=== PATIENT | male | born 1990 | race Caucasian/White ===

== ENCOUNTER → 2021-09-02 14:13 | Outpatient (BNVA) | payer SELFPAY | PROVIDERS: PCP Nurse Practitioner Family; Visit Provider Family Medicine | DX: R05.9 Cough, unspecified (principal); R50.9 Fever, unspecified | CPT/HCPCS: 87400; 87635 ==

== ENCOUNTER 2021-09-04 23:18 | Emergency (ER) | payer SELFPAY ==
[2021-09-04 23:21] VITALS: BP 174/82; RESP 18; O2SAT 98; BMI 22.3
--- NOTE | 2021-09-04 23:29 | XRR_ITS ---
PROCEDURE INFORMATION: Exam: XR Chest Exam date and time: 09/04/2021 11:29 PM Age: 30 years old Clinical indication: Shortness of breath; Additional info: SOB TECHNIQUE: Imaging protocol: XR of the chest. Views: 1 view. COMPARISON: No relevant prior studies available. FINDINGS: Lungs: No consolidation. Pleural spaces: No pleural effusion. No pneumothorax. Heart/Mediastinum: No cardiomegaly. Bones/joints: Unremarkable. XR/XR chest 1V portable [id number] IMPRESSION: No acute abnormality demonstrated.
--- NOTE | 2021-09-04 23:33 | ED_ITS ---
HPI - COVID General: Chief Complaint: Shortness of Breath/Dyspnea Stated Complaint: sob Time Seen by Provider: 09/04/21 23:29 Triage information: Has fever, cough or shortness of breath . No known COVID + exposure last 14 days History of Present Illness: HPI Narrative: Patient arrives via ambulance with complaint of worsening shortness of breath. Patient says his symptoms started on Wednesday he has had fever chills headache nasal congestion cough loss of taste. He said tonight his shortness of breath become worse. Patient states it hurts to take a deep breath and that is the pain that he is having in the center of her chest when he takes a deep breath. Received a nebulizer treatment in the ambulance he said that did not seem like it helped much. Patient is unvaccinated. Patient states he is not interested in receiving monoclonal antibody if he test positive for Covid. complaint: has COVID symptoms Prior covid testing: yes, results pending at other location Prior testing date: 09/02/21 COVID 19 common symptoms: positive fever(s), chills, non-productive cough, dyspnea, body aches, headache(s), loss of sense of smell and/or taste, throat pain, nasal congestion and chest tightness; negative nausea or vomiting COVID 19 other sytmptoms: negative chest pain Onset (ago): day(s) Severity: moderate COVID Results: SARS-CoV-2 Antigen (Rapid) Positive (Negative) H 09/04/21 23:35 09/04/21 SARS-CoV-2 RNA (RT-PCR) Pending 09/02/21 14:00 09/02/21 Review of Systems Const: Reports: fever(s), chills and body aches Eyes: Denies: change in vision or blurry vision ENMT: Reports: throat pain and nasal congestion Card: Denies: chest pain or dyspnea on exertion Resp: Reports: dyspnea, non-productive cough and pain on inspiration GI: Denies: abdominal pain, nausea or vomiting : Denies: difficulty urinating Musc: Denies: extremity pain Skin/Breast: Denies: rash Neuro: Reports: headache(s) Psych: Denies: anxiety or depression Everardo/Lymph: Denies: easy bruising PFSH ED PFSH: Social History Alcohol intake: unknown Current occupational status: employed Current gender identity: Male Physical Exam Const: COMMON NORMALS: no acute distress, average body habitus and patient oriented x3 HENMT: COMMON NORMALS: normocephalic HEAD & SCALP: normal to inspection and normocephalic FACE & SINUS: normal facial exam Eye: COMMON NORMALS: conjunctivae normal GENERAL EYE: appearance normal, both eyes and all related structures CONJUNCTIVA: Yes conjunctivae normal Neck/C-Spine: COMMON NORMALS: no JVD Chest: COMMONS NORMALS: normal inspection of the chest Resp: COMMON NORMALS: normal respiratory effort EFFORT & INSPECTION: Yes able to speak in complete sentences Cardio: COMMON NORMALS: no JVD, regular rate and regular rhythm RATE: regular rate RHYTHM: regular rhythm GI: COMMON NORMALS: Normal to inspection, nondistended, normoactive bowel sounds present Extremity: COMMON NORMALS: normal to inspection and full ROM Neuro: COMMON NORMALS: patient oriented x3 Course Vital Signs: Vital signs: Vital Signs Respiratory Rate 18 09/04/21 23:21 Blood Pressure 174/82 09/04/21 23:21 Pulse Oximetry 98 09/04/21 23:21 MDM - COVID MDM Narrative: Medical decision making narrative: Patient arrives via ambulance complaint of burning with inspiration takes deep breath. he has had COVID symptoms since Wednesday. Patient was tested on the with results not being back. Chest x-ray is done which is negative for any concerning findings. Covid test come back positive. Patient requesting note for work. Patient no acute distress, has no complaints shortness of breath. Patient afebrile. Patient currently on azithromycin , methylprednisone. Patient encouraged at home , test negative before return back to work. Lab Data: Labs: Lab Results 09/04/21 23:35 SARS-CoV-2 Ag (Rap id) Positive H (Negative) COVID Results: SARS-CoV-2 Antigen (Rapid) Positive (Negative) H 09/04/21 23:35 09/04/21 SARS-CoV-2 RNA (RT-PCR) Pending 09/02/21 14:00 09/02/21 Discharge Plan Discharge Patient Disposition: Home Clinical Impression: COVID-19 Condition: Stable Prescriptions: No Action methylprednisolone [Medrol (Micah)] 4 mg tablets,dose pack See Rx Instructions PO PER PKG DIR Qty: 21 RF: 0 azithromycin [Zithromax Z-Micah] 250 mg tablet See Rx Instructions PO .COMPLEX Qty: 6 RF: 0 Discharge Orders: Discharge ED (Routine); Ordered 09/05/21 Ordered By: Edmundo Monk Referrals: Edmundo Monk, OCCUPATIONAL HEALTH RN [Primary Care Provider] - Discharge Diet: Usual diet Discharge Activity: Increase activity as tolerated Patient Instructions: COVID-19 (Coronavirus Disease 2019) (ED) Activity Restrictions/Additional Instructions: Continue present medications. Can take Tylenol and/or ibuprofen for discomfort. Stay off work to you test negative. Follow-up your primary care return here for worsening symptoms. Stand Alone Forms: Work/School Release Coding Level of Care Code ED Rn Surgical for Elijahg Fwd Exam Comprehensive
[2021-09-05] MEDS: ketorolac 30 mg/mL INJ IVP (00:09)
[2021-09-05 00:12] LABS: SARS Covid-2 Antigen Positive (Negative)
== END 2021-09-05 00:39 | disposition home or self-care (01) ==
PROVIDERS: Emergency Provider Nurse Practitioner Family; PCP Nurse Practitioner Family
DX: U07.1 COVID-19 (principal)
CPT/HCPCS: 71045; 87426; 96374; 99283; J1885

== ENCOUNTER 2022-03-08 18:56 | Emergency (ER) | payer SELFPAY ==
[2022-03-08 19:01] VITALS: BP 142/76; PULSE 78; RESP 16; TEMP 36.8; O2SAT 98
--- NOTE | 2022-03-08 19:05 | XRR_ITS ---
PROCEDURE INFORMATION: Exam: XR Right Ankle Exam date and time: 03/08/2022 7:27 PM Age: 31 years old Clinical indication: Injury or trauma; Fall; Blunt trauma; Ankle; Right; Additional info: Right ankle injury TECHNIQUE: Imaging protocol: Radiologic exam of the Right ankle. Views: 3 or more views. COMPARISON: No relevant prior studies available. FINDINGS: Bones/joints: Osseous structures are intact. Negative for fracture. Joint spaces are preserved. Soft tissues: Normal. XR/XR ankle RT min 3V* [id number] IMPRESSION: No acute findings.
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
== END 2022-03-08 20:38 | disposition home or self-care (01) ==
PROVIDERS: Emergency Provider Nurse Practitioner Family; PCP Nurse Practitioner Family
DX: S93.401A Sprain of unspecified ligament of right ankle, initial encounter (principal); X50.1XXA Overexertion from prolonged static or awkward postures, initial encounter
CPT/HCPCS: 73610; 99283; E0114

== ENCOUNTER 2023-02-08 20:44 | Emergency (ER) | payer SELFPAY ==
[2023-02-08 20:55] VITALS: BP 122/78; PULSE 55; RESP 12; TEMP 36.7; O2SAT 99; BMI 23.0
[2023-02-08] MEDS: sodium chloride 0.9% 1,000 ML 999 ML IV (21:49)
--- NOTE | 2023-02-08 21:49 | W.ED.NAVMDI ---
HPI - Nausea/Vomiting/Diarrhea General: Chief complaint: Nausea/Vomiting/Diarrhea Stated complaint: V\Diahr Time Seen by Provider: 02/08/23 21:35 Source: patient Mode of arrival: ambulatory Limitations: no limitations History of Present Illness: This 32-year-old male presents to the ER for evaluation of abdominal pain that started around 530 this morning. So far, he has vomited about 5 times and had about 10 bowel movements. He also complains of body aches and chills. There are no sick contacts at home or at work. No fever was documented. Currently, patient is clinically stable. Associated nausea: Yes Associated symtoms: Reports nausea; Denies change in vision, chest pain, dysuria or headache(s) Review of Systems Const: Denies: chills, body aches or change in appetite Eyes: Denies: change in vision or eye discharge ENMT: Denies: throat pain, dental pain or nasal discharge Card: Denies: chest pain or lightheadedness GI: Reports: nausea, vomiting and other (Diarrhea) : Denies: dysuria Musc: Denies: neck pain or back pain Neuro: Denies: headache(s) or weakness in extremities Psych: Denies: depression Everardo/Lymph: Denies: easy bruising All/Imm: Denies: urticaria, tongue swelling or facial swelling PFSH ED PFSH: Social History Alcohol intake: unknown Substance/Drug Use: never Current occupational status: employed Current gender identity: Male Physical Exam Const: COMMON NORMALS: no acute distress, patient oriented x3, no limitations and alert HENMT: COMMON NORMALS: normocephalic HEAD & SCALP: normocephalic Eye: COMMON NORMALS: EOMs intact bilaterally Neck/C-Spine: COMMON NORMALS: full ROM and supple Chest: COMMONS NORMALS: normal inspection of the chest Resp: COMMON NORMALS: normal respiratory effort, No retractions, No use of accessory muscles and clear to auscultation bilaterally AUSCULTATION: clear to auscultation bilaterally Cardio: COMMON NORMALS: regular rate, regular rhythm and No murmurs present (Cardio) RATE: regular rate RHYTHM: regular rhythm GI: COMMON NORMALS: Normal to inspection, nondistended, normoactive bowel sounds present and non-tender : COMMON NORMALS: Yes no CVA tenderness BLADDER/KIDNEY EXAM: Yes no CVA tenderness Back/Pelvis: COMMON NORMALS: no CVA tenderness and no thoracic nor lumbar tenderness Extremity: GENERAL: Yes normal exam except as noted Neuro: COMMON NORMALS: patient oriented x3 and no focal motor deficits SENSORIUM/ORIENTATION: Yes alert Psych: COMMON NORMALS: mental status grossly normal and cooperative Course Vital Signs: Vital signs: Vital Signs Temperature 98.0 F 02/08/23 20:55 Pulse Rate 52 L 02/08/23 22:18 Respiratory Rate 14 02/08/23 22:18 Blood Pressure 124/68 02/08/23 22:18 Pulse Oximetry 99 02/08/23 22:18 Oxygen Delivery Me thod Room Air 02/08/23 22:18 MDM - Nausea/Vomiting/Diarrhea Medical Decision Making Medical decision making: Patient presents with vomiting and diarrhea that started earlier today. On exam, she has no abdominal tenderness and abdomen is nonsurgical in nature. After receiving IV fluids and antiemetics, patient felt considerably better. I believe that he has acute gastroenteritis. He will be treated symptomatically. Reasons to return were discussed. Patient verbalized understanding and agrees with the plan. Lab Data 02/08/23 21:42 02/08/23 21:42 Laboratory Results WBC 8.0 10^3/uL (4.0-10.0) 02/08/23 21:42 RBC 4.86 10^6/uL (4.1-5.3) 02/08/23 21:42 Hgb 14.6 g/dL (11.7-16.6) 02/08/23 21:42 Hct 45.1 % (42.0-52.0) 02/08/23 21:42 MCV 92.8 fl (80-94) 02/08/23 21:42 MCH 30.0 pg (28.0-34.0) 02/08/23 21:42 MCHC 32.4 g/dL (30.0-36.0) 02/08/23 21:42 RDW 12.6 % (12.1-15.1) 02/08/23 21:42 Plt Count 263 10^3/cmm (130-400) 02/08/23 21:42 MPV 9.4 fL (7.4-10.4) 02/08/23 21:42 Neut % (Auto) 63.4 % 02/08/23 21:42 Lymph % (Auto) 25.3 % 02/08/23 21:42 [place] % (Auto) 6.5 % 02/08/23 21:42 Eos % (Auto) 3.9 % 02/08/23 21:42 Baso % (Auto) 0.6 % 02/08/23 21:42 Neut # (Auto) 5.05 10^3/uL (1.8-7.7) 02/08/23 21:42 Lymph # (Auto) 2.0 10^3/uL (0.8-4.8) 02/08/23 21:42 [place] # (Auto) 0.5 10^3/uL (0.2-0.9) 02/08/23 21:42 Eos # (Auto) 0.3 10^3/uL (0.0-0.8) 02/08/23 21:42 Baso # (Auto) 0.1 10^3/uL (0.0-0.1) 02/08/23 21:42 Nucleated RBC % (auto) 0 % 02/08/23 21:42 Nucleated RBCs # 0.0 /100WBC 02/08/23 21:42 Sodium 140 mmol/L (136-145) 02/08/23 21:42 Potassium 3.9 mmol/L (3.5-5.1) 02/08/23 21:42 Chloride 101 mmol/L (98-107) 02/08/23 21:42 Carbon Dioxide 28 mmol/L (22-29) 02/08/23 21:42 Anion Gap 14.9 (5-19) 02/08/23 21:42 BUN 12 mg/dL (6-20) 02/08/23 21:42 Creatinine 0.9 mg/dL (0.7-1.2) 02/08/23 21:42 GFR Calculation 99.1 mL/min (90-130) 02/08/23 21:42 Glucose 86 mg/dL (65-115) 02/08/23 21:42 Calculated Osmolality 289 mOsm/kg (285-295) 02/08/23 21:42 Calcium 10.2 mg/dL (8.5-10.5) 02/08/23 21:42 Total Bilirubin 0.5 mg/dL (0.15-1.2) 02/08/23 21:42 AST 17 U/L (0-40) 02/08/23 21:42 ALT 18 U/L (0-41) 02/08/23 21:42 Alkaline Phosphatase 69 U/L (40-130) 02/08/23 21:42 Total Protein 7.2 g/dL (6.6-8.7) 02/08/23 21:42 Albumin 4.6 g/dL (3.5-5.2) 02/08/23 21:42 Globulin 2.6 g/dL (1.3-4.6) 02/08/23 21:42 Lipase 26 U/L (13-60) 02/08/23 21:42 Influenza Type A Ag negative (Negative) 02/08/23 22:13 Influenza Type B Ag negative (Negative) 02/08/23 22:13 SARS-CoV-2 Ag (Rapid) negative (Negative) 02/08/23 22:13 Discharge Plan Discharge Patient Disposition: Home Clinical Impression: Gastroenteritis Condition: Stable Prescriptions: New ondansetron HCl 4 mg tablet 4 mg PO Q6H PRN (Reason: nausea and vomiting) Qty: 20 0RF No Action methylprednisolone [Medrol (Micah)] 4 mg tablets,dose pack See Rx Instructions PO PER PKG DIR Qty: 21 0RF Rx Instructions: PO PER PKG DIR azithromycin [Zithromax Z-Micah] 250 mg tablet See Rx Instructions PO .COMPLEX Qty: 6 0RF Rx Instructions: take 500 mg today (day 1), then 250 mg for 4 days (days 2-5) PO Discharge Orders: Discharge ED (Routine); Ordered 02/08/23 Ordered By: Dayan Weems Discharge Diet: Usual diet Discharge Activity: Resume usual activity Patient Instructions: Opioid Safety, Pain Management Activity Restrictions/Additional Instructions: Take Zofran as needed for nausea/vomiting. Maintain adequate fluid intake. Take [id number] Tylenol as needed for abdominal pain. Return with new or worsening symptoms. Stand Alone Forms: Work/School Release Coding Level of Care Code ED Art Therapy Certified Supervisor for Joel aDnielle
[2023-02-08] MEDS: metoclopramide 5 mg/mL SDV 2 mL 10 MG IVP (21:50)
[2023-02-08 22:18] VITALS: BP 124/68; PULSE 52; RESP 14; O2SAT 99
[2023-02-08 22:22] LABS: Basophils # 0.1 10^3/uL (0.0-0.1); Basophils % 0.6 %; Eosinophils # 0.3 10^3/uL (0.0-0.8); Eosinophils % 3.9 %; Hematocrit 45.1 % (42.0-52.0); Hemoglobin 14.6 g/dL (11.7-16.6); Lymphocytes % 25.3 %; Mean Corpuscular HGB Conc 32.4 g/dL (30.0-36.0); Mean Corpuscular Volume 92.8 fl (80-94); Mean Platelet Volume 9.4 fL (7.4-10.4); Monocytes # 0.5 10^3/uL (0.2-0.9); Monocytes % 6.5 %; Neutrophils # 5.05 10^3/uL (1.8-7.7); Neutrophils % 63.4 %; Nucleated Red Blood Cells % 0 %; Platelet Count 263 10^3/cmm (130-400); Red Blood Count 4.86 10^6/uL (4.1-5.3); Red Cell Distribution Width 12.6 % (12.1-15.1)
[2023-02-08 22:23] LABS: Alanine Aminotransferase 18 U/L (0-41); Albumin Level 4.6 g/dL (3.5-5.2); Alkaline Phosphatase 69 U/L (40-130); Anion Gap 14.9 (5-19); Aspartate Amino Transferase 17 U/L (0-40); Blood Urea Nitrogen 12 mg/dL (6-20); Calcium 10.2 mg/dL (8.5-10.5); Carbon Dioxide 28 mmol/L (22-29); Chloride 101 mmol/L (98-107); Globulin 2.6 g/dL (1.3-4.6); Glomerular Filtration Rate 99.1 mL/min (90-130); Glucose 86 mg/dL (65-115); Lipase 26 U/L (13-60); Osmolality Calculated 289 mOsm/kg (285-295); Potassium 3.9 mmol/L (3.5-5.1); Sodium 140 mmol/L (136-145); Total Bilirubin 0.5 mg/dL (0.15-1.2); Total Protein 7.2 g/dL (6.6-8.7)
[2023-02-08 22:40] LABS: SARS Covid-2 Antigen negative (Negative)
[2023-02-08 22:43] LABS: Influenza A by IFA negative (Negative); Influenza B by IFA negative (Negative)
--- NOTE | 2023-02-12 12:10 | DCPLANNER ---
woods manager called patient due to no primary care physician - patient declines at this time.
== END 2023-02-08 23:10 | disposition home or self-care (01) ==
PROVIDERS: Family Medicine; Emergency Provider Nurse Practitioner Family
DX: K52.9 Noninfective gastroenteritis and colitis, unspecified (principal); Z20.822 Contact with and (suspected) exposure to COVID-19
CPT/HCPCS: 80053; 83690; 85025; 87426; 87804; 96374; 99284; J2765; J7030

== ENCOUNTER → 2024-04-14 08:38 | Outpatient (BNVA) | payer SELFPAY | PROVIDERS: PCP Family Medicine; Visit Provider Family Medicine | DX: M79.89 Other specified soft tissue disorders (principal) | CPT/HCPCS: 85379 ==

== ENCOUNTER 2024-08-09 19:08 | Emergency (ER) | payer SELFPAY ==
[2024-08-09 19:10] VITALS: BP 128/83; PULSE 102; RESP 16; TEMP 36.5; O2SAT 98; BMI 23.7
--- NOTE | 2024-08-09 19:25 | XRR_ITS ---
PROCEDURE INFORMATION: Exam: XR Left Knee Exam date and time: 08/09/2024 7:50 PM Age: 33 years old Clinical indication: Injury or trauma; Fall; Sprain or strain; Patella or knee; Left; Additional info: Injury/pain to anterior knee TECHNIQUE: Imaging protocol: Radiologic exam of the left knee. Views: 3 views. COMPARISON: No relevant prior studies available. FINDINGS: Bones/joints: Normal. Soft tissues: Normal. XR/XR knee LT 3V* [id number] IMPRESSION: No acute findings.
--- NOTE | 2024-08-09 19:31 | W.ED.EXTPRO ---
HPI - Extremity Problem General: Chief complaint: Extremity Injury, Lower Stated complaint: Left knee injury Time Seen by Provider: 08/09/24 19:08 Source: patient Mode of arrival: ambulatory Limitations: no limitations History of Present Illness: Patient is a 33-year-old male who presents to the emergency department complaining of left knee pain beginning around 1330 today. Patient states he was pressing his left foot down on the clutch in his truck, and upon pressing down towards had a sudden sharp pain to the anterior left knee. Most of the pain reported to be inferior to the patella, he notes that his lower leg has become more cool when compared to the right. Also notes pain with walking. Has not taken anything for pain yet. He has no surgical history of the left knee, no previous fractures or dislocations. He has no other symptoms to report at this time. MD Complaint: joint pain Onset (ago): hour(s) Pain Consistency: constant Location: left and knee Radiation: distal Exacerbating factors: weight bearing and walking Associated symptoms: Deny chest pain, fever(s) or rash Related Data Allergies Allergy/AdvReac Type Severity Reaction Status Date / Time No Known Allergies Allergy Verified 12/24/23 09:06 Review of Systems General: Reports: 10 or more systems reviewed and unremarkable except in HPI and below Const: Denies: fever(s) or chills Card: Denies: chest pain Resp: Denies: dyspnea or productive cough GI: Denies: abdominal pain, nausea, vomiting or diarrhea : Denies: flank pain Musc: Reports: joint pain (Left knee); Denies: neck pain, back pain, extremity pain, extremity swelling, joint swelling, joint redness, joint warmth, limited range of motion or muscle weakness Skin/Breast: Reports: other (Coolness to left lower extremity); Denies: rash Neuro: Reports: numbness in extremities (Left lower extremity); Denies: headache(s) or weakness in extremities PFSH ED PFSH: Medical History Asthma Surgical History No pertinent past surgical history Family History Father DVT (deep venous thrombosis), Onset Age: 53 First at age 53 and has had multiple since. Mother COPD (chronic obstructive pulmonary disease) Smoker Social History Smoking and tobacco/nicotine status: current every day tobacco/nicotine user smokeless tobacco Smokeless tobacco user: chewing tobacco Smokeless tobacco details: 1 can per day Alcohol intake: former Year of sobriety/quit date alcohol: 2021 Former alcohol use details: Used to drink a lot Substance/Drug Use: never Current occupational status: employed Current occupation: [employer] in [place] Current gender identity: Male Physical Exam Const: COMMON NORMALS: no acute distress, patient oriented x3, no limitations, healthy appearing, alert and well nourished HENMT: COMMON NORMALS: normocephalic and atraumatic HEAD & SCALP: normocephalic and atraumatic Neck/C-Spine: COMMON NORMALS: full ROM, supple and no meningeal signs Resp: COMMON NORMALS: normal respiratory effort, No use of accessory muscles and clear to auscultation bilaterally AUSCULTATION: clear to auscultation bilaterally Cardio: COMMON NORMALS: regular rate and regular rhythm RATE: regular rate RHYTHM: regular rhythm Extremity: NARRATIVE EXTREMITY EXAM: No swelling of the left knee. There is reproducible tenderness to palpation to the left lateral and medial joint line of the knee, no appreciable joint effusion. Negative tenderness to palpation of the quad tendon or patellar tendon. Negative tenderness to palpation over the tibial tubercle. No joint laxity with varus and valgus stress testing. Range of motion with pain at the left knee, no change appreciated in skin temperature when compared to his right lower extremity. 2+ DP/PT pulses. Negative Jayro, anterior/posterior testing. Somewhat positive Erick's testing. Neuro: COMMON NORMALS: patient oriented x3, moves all extremities, no focal motor deficits and no sensory deficits noted SENSORIUM/ORIENTATION: Yes alert MENINGEAL SIGNS: Yes no meningeal signs Skin: COMMON NORMALS: no rashes or lesions noted GENERAL SKIN EXAM: no rashes or lesions noted Course Vital Signs: Vital signs: Vital Signs Temperature 97.7 F 08/09/24 19:10 Pulse Rate 84 08/09/24 20:16 Respiratory Rate 16 08/09/24 20:16 Blood Pressure 128/72 08/09/24 20:16 Pulse Oximetry 97 12/11/24 20:16 Oxygen Delivery Me thod Room Air 08/09/24 20:16 MDM - Extremity (Nontraumatic) Medical Decision Making Patient injured his left knee earlier today, there was no trauma. His x-ray was normal. Physical exam was not suspicious for any severely torn ligaments, if anything he may require an MRI to evaluate his meniscus and ligament status in general. We will do RICE therapy at home and have him take Tylenol and ibuprofen for pain. Work note provided. Return precautions given. Lab Data Radiology Impressions Knee X-Ray 08/09/24 19:25 IMPRESSION: No acute findings. All radiology interpretation(s) finalized by discharge Discharge Plan Discharge Patient Disposition: Home Clinical Impression: Acute pain of left knee Condition: Stable Discharge Orders: Discharge ED (Routine); Ordered 08/09/24 Ordered By: López Kovacs Referrals: Willie Donahue MD [Primary Care Provider] - Patient Instructions: Knee Pain (ED) Activity Restrictions/Additional Instructions: See discharge instructions for further education. Rest, ice, compression, and elevation of the left lower extremity. Work note is provided. Alternate Tylenol and ibuprofen. Please follow-up with primary care if your pain does not improve or worsens, as you may require an MRI. Stand Alone Forms: Work/School Release Coding Level of Care Code ED Converting Technician for Joel Danielle
[2024-08-09] MEDS: ibuprofen 600 mg Tablet PO (19:46)
[2024-08-09 19:52] VITALS: BP 130/76; PULSE 87; RESP 16; O2SAT 97
[2024-08-09 20:16] VITALS: BP 128/72; PULSE 84; RESP 16; O2SAT 97
[2024-08-09 21:00] VITALS: BP 114/54; PULSE 78; O2SAT 98
== END 2024-08-09 21:01 | disposition home or self-care (01) ==
PROVIDERS: Emergency Provider Physician Assistant; PCP Family Medicine
DX: M25.562 Pain in left knee (principal)
CPT/HCPCS: 73562; 99283

== ENCOUNTER 2025-05-28 12:17 | Outpatient (CLI) | payer MEDICAID, SELFPAY ==
--- NOTE | 2025-05-28 12:25 | XR_ITS ---
WS: [id number] XR shoulder RT min 2V* [id number] REASON FOR EXAM: Right shoulder pain FINDINGS: No fracture or focal bone lesion. Acromioclavicular joint space is moderately narrower than on a previous examination of 12/23/2008. Minimal subchondral sclerosis. The glenohumeral joint space is not well demonstrated. There does not appear to be significant narrowing. There is minimal subchondral sclerosis of the glenoid. Minimal sclerosis in the greater biceps tuberosity. XR/XR shoulder RT min 2V* [id number] IMPRESSION: Mild osteoarthritis of the acromioclavicular joint. Minimal glenohumeral joint. Minimal rotator cuff tendon arthropathy.
== END 2025-05-28 12:18 | disposition home or self-care (01) ==
PROVIDERS: PCP Family Medicine; Visit Provider Family Medicine
DX: M19.011 Primary osteoarthritis, right shoulder (principal)
CPT/HCPCS: 73030